=== PATIENT | female | born 1955 | race Caucasian/White ===

== ENCOUNTER → 2016-11-28 17:11 | Outpatient (CLI) | payer BC | END | disposition home or self-care (01) | LOC: D.MAMMO 11:45 | DX: Z12.31 Encounter for screening mammogram for malignant neoplasm of breast (principal) ==

== ENCOUNTER 2017-07-13 09:59 | Day surgery (SDC) | payer BC ==
[2017-07-12 14:49] LABS: BASOPHILS 1.1 % (0-2); EOSINOPHILS 4.7 % (0-7); HEMATOCRIT 37.8 % (36.0-48.0); HEMOGLOBIN 12.6 g/dL (12-16); IMMATURE GRANULOCYTES 0.2 % (0-5); LYMPHOCYTES 25.9 % (15-50); MCH 27.9 pg (26.0-34.0); MCHC 33.3 g/dL (31.0-37.0); MCV 83.6 fL (80.0-100.0); MEAN PLATELET VOLUME 10.8 fL (7.4-10.4); MONOCYTES 10.8 % (2-11); NEUTROPHILS 57.3 % (40-80); PLATELET COUNT 352 10x3/uL (130-400); RBC 4.52 10x6/uL (4.00-5.40); RDW 13.8 % (11.5-14.5); WBC 8.7 10x3/uL (4.8-10.8)
[2017-07-12 15:04] LABS: ANION GAP 13.5 mmol/L (8-16); CALCIUM 8.7 mg/dL (8.5-10.1); CARBON DIOXIDE 27.1 mmol/L (21.0-32.0); CREATININE - SERUM 1.2 mg/dL (0.6-1.3); POTASSIUM - SERUM 3.6 mmol/L (3.5-5.1)
[~2017-07-13] VITALS: Ht 165.1 cm; Wt 93.0 kg
[~2017-07-13 09:59] MED LIST: CELEXA20 MG PO; MOBIC7.5 MG PO; TRIAMTERENE-HCT1 TA1 PO; ZESTRIL10 MG PO
[2017-07-13] MEDS ORDERED: HYDROCODONE-APA1 TAB PO (12:17)
--- NOTE | 2017-07-13 14:09 | OP ---
PATIENT NAME: LALO ESPINO MEDICAL RECORD: [id number] :51 LOCATION:D.OPS ADMISSION DATE: SURGEON: JASVIR GARCIA MD DATE OF OPERATION: 07/13/2017 PREOPERATIVE DIAGNOSES: Rotator cuff tear of the left shoulder with impingement syndrome and acromioclavicular arthritis. POSTOPERATIVE DIAGNOSES: Rotator cuff tear of the left shoulder with impingement syndrome and acromioclavicular arthritis. PROCEDURES: 1. Arthroscopic rotator cuff repair. 2. Arthroscopic distal clavicle excision done through separate incision -- 1 cm. 3. Arthroscopic subacromial decompression with acromioplasty and bursectomy. SURGEON: Jasvir Garcia MD ANESTHESIA: General. INTRAOPERATIVE COMPLICATIONS: None. SUMMARY OF PATHOLOGIC FINDINGS: As seen on the MRI, the patient had a rotator cuff tear with minimal retraction of the supraspinatus tendinous footprint that was very amenable to arthroscopic fixation. Type 3 acromion was also noted as well as acromioclavicular arthritis. OPERATIVE SUMMARY IN DETAIL: After obtaining the appropriate preoperative orthopedic surgery consent as well as anesthetic consultation, evaluation and clearance, the patient was brought to the operating room and placed on the operating table in supine position. After general laryngeal mask airway was administered, the patient was placed in a right lateral decubitus position. All pressure points were well padded to include down leg peroneal pad as well as axillary roll. She was held firmly to the operating table using the vacuum pack suction system. Left upper extremity and shoulder were prepped and draped in routine sterile fashion. The arm was held in the Arthrex arm holding device at 30 degrees of forward flexion, 30 degrees of abduction with 10 pounds of traction laterally. Arthroscopy was established in the glenohumeral joint from a posterior portal. Anterior portal was established in the anterior safe interval. Diagnostic arthroscopy did reveal the above findings. An accessory tertiary portal was established for transrotator cuff debridement of the intra-articular fibers of the rotator cuff that were nonviable as well as decortication of the medial aspect of the supraspinatus tendinous footprint. Attention was then turned to the subacromial space. While in the subacromial space, the undersurface of the acromion was denuded of all soft tissue, using the [place] surface tissue ablation system and the coracoacromial ligament was also released. A 5-0 barrel bur was then used to perform acromioplasty at the level of acromioclavicular joint and then under separate portal, the distal clavicle was excised 1 cm using a 5-0 bur. Having completed this, further decortication was carried out on the nonarticular aspect of the rotator cuff for rotator cuff reapproximation. The rotator cuff was affixed with a #2 FiberTape and this was anchored laterally with a 5.5 SwiveLock from Arthrex. Having completed this, all arthroscopy portals were closed in routine interrupted fashion using 4-0 Prolene. Sterile dressings were applied. The patient was OPERATIVE REPORT [id number] LALO ESPINO, taken to recovery in stable condition. All final needle and sponge counts were correct. TRANSINT:[id number] Voice Confirmation ID: [id number] DOCUMENT ID: [id number] JOSE HINTON, JASVIR MEDRANO at 1409 CC: [id number] DICTATION DATE: 07/13/17 1221 PROJECT MANAGEMENT INTERN: 07/13/17 1254 REG [facility] [address] [place] [address]
--- NOTE | 2017-07-13 16:51 | NUR ---
1330 IV DC WITH CATHER TIP INTACT
== END 2017-07-13 13:45 | disposition home or self-care (01) ==
LOC: D.OPS 09:59 → D.PAN 13:30 → D.OPS 13:30
PROVIDERS: Anesthesiology
DX: M75.122 Complete rotator cuff tear or rupture of left shoulder, not specified as traumatic (principal); M25.512 Pain in left shoulder; I10 Essential (primary) hypertension; G47.30 Sleep apnea, unspecified; Z01.812 Encounter for preprocedural laboratory examination

== ENCOUNTER 2017-12-04 12:53 | Emergency (ER) | payer BC ==
[~2017-12-04 12:53] MED LIST changes: +HYDROCODONE-APA1 TAB PO
== END 2017-12-04 16:51 | disposition home or self-care (01) ==
LOC: D.ER 12:53
DX: M25.511 Pain in right shoulder (principal); V43.52XA Car driver injured in collision with other type car in traffic accident, initial encounter; Y93.89 Activity, other specified; Y92.410 Unspecified street and highway as the place of occurrence of the external cause

== ENCOUNTER 2018-01-29 10:40 | Day surgery (SDC) | payer BC ==
[2018-01-26 09:37] LABS: ANION GAP 10.3 mmol/L (8-16); CALCIUM 9.3 mg/dL (8.5-10.1); CARBON DIOXIDE 29.3 mmol/L (21.0-32.0); POTASSIUM - SERUM 3.6 mmol/L (3.5-5.1)
[2018-01-26 09:46] LABS: HEMATOCRIT 39.3 % (36.0-48.0); HEMOGLOBIN 13.3 g/dL (12-16); MCH 28.4 pg (26.0-34.0); MCHC 33.8 g/dL (31.0-37.0); MEAN PLATELET VOLUME 10.9 fL (7.4-10.4); RBC 4.68 10x6/uL (4.00-5.40); RDW 13.6 % (11.5-14.5); WBC 6.2 10x3/uL (4.8-10.8)
[2018-01-26 09:57] LABS: CREATININE - SERUM 1.1 mg/dL (0.6-1.3)
[~2018-01-29] VITALS: Ht 165.1 cm; Wt 90.7 kg
--- NOTE | ~2018-01-29 | OP ---
PATIENT NAME: LALO ESPINO MEDICAL RECORD: [id number] :51 LOCATION:[facility] ADMISSION DATE: SURGEON: JASVIR GARCIA MD DATE OF OPERATION: 01/29/2018 PREOPERATIVE DIAGNOSIS: Recurrent rotator cuff tear of the right shoulder. POSTOPERATIVE DIAGNOSES: Recurrent rotator cuff tear of the right shoulder plus recurrent impingement. PROCEDURES: 1. Arthroscopic rotator cuff repair of the right shoulder. 2. Arthroscopic subacromial decompression, acromioplasty, and bursectomy. SURGEON: Jasvir Garcia MD ANESTHESIA: General. INTRAOPERATIVE COMPLICATIONS: None. SUMMARY OF PATHOLOGIC FINDINGS: The inner aspect of the rotator cuff on the articular side did not show evidence of full-thickness tearing; however, on the subacromial side, the patient had a large laminar type tear; however, it was very mobile and was mobile enough to return back to the supraspinatus tendon for good fixation. Slight recurrent impingement was noted with some excoriation of the roof of the acromion. The glenohumeral joint was relatively pristine without labral tearing. No biceps tendonitis was noted. OPERATIVE SUMMARY IN DETAIL: After obtaining the appropriate preoperative orthopedic surgery consent as well as anesthetic consultation, evaluation and clearance, the patient was brought to the operating room and placed on the operating table in supine position. After general laryngeal mask airway was administered, the patient was placed in the left lateral decubitus position. All pressure points were padded to include down leg peroneal pad as well as axillary roll. The patient was held firmly to the operating table using vacuum pack suction system. Right upper extremity and shoulder prepped and draped in routine sterile fashion. The arm was held in Arthrex traction at 30 degrees of forward flexion, 30 degrees of abduction with 10 pounds of traction laterally. Arthroscopy was established in the glenohumeral joint from the posterior portal. Anterior portal was established through the anterior safe interval. Diagnostic arthroscopy revealed the above findings without substantial amount of any intraarticular findings. Attention was turned to the rotator cuff, up the subacromial space. After arthroscopy was established in the subacromial space, accessory lateral portal was created. Findings were above as noted. A grasper was utilized to grasp the torn leaflet and it was freely mobile. At this point, decortication was carried out at the supraspinatus tendinous footprint and debridement between the lamina of the rotator cuff was taken out as well. The fibers that were still attached for relatively thin less than 20% of the rotator cuff, these were ultimately debrided and the entire cuff was ultimately brought back as one solid piece. #2 inverted mattress FiberTapes were placed from posterior to the mid substance of OPERATIVE REPORT [id number] LALO ESPINO the tear. These were anchored laterally with a 4.75 SwiveLock from Arthrex and a 5.5 SwiveLock from Arth[employer] respectively. Lastly, the patient had a small portion anteriorly that was still not covering the supraspinatus tendinous footprint. Therefore, a cinch stitch was created out of #2 FiberWire, pulled through with a good grasp and then it was anchored laterally with excellent coverage of the footprint with a 4.75 SwiveLock. Having completed this, the [place] tissue ablation system was utilized to denude the undersurface of the acromion and the acromioplasty was increased substantially in hopes that no further irritation or interference of the subacromial space would inhibit the rotator cuff rotation. The rotator cuff repair was manipulated and viewed under range of motion and seemed to be stable in all planes. Having completed this, arthroscopy portals were closed in routine interrupted fashion with 4-0 Prolene. Sterile dressings were applied. The patient was awakened and taken to the recovery room in stable condition. All final needle and sponge counts were correct. TRANSINT:[id number] Voice Confirmation ID: [id number] DOCUMENT ID: [id number] JOSE HINTON, JASVIR MEDRANO at 1329 CC: [id number] DICTATION DATE: 01/29/18 164 FINANCIAL REPORTING CONSULTANT: 01/29/18 190 [facility] 01/29/18 [facility] [address] [place] [id number]
[2018-01-29 11:23] VITALS: BP 114/45; Ht 165.1 cm; Wt 90.7 kg
[2018-01-29] MEDS ORDERED: HYDROCODONE-APA1 TAB PO (16:43)
== END 2018-01-29 18:35 | disposition home or self-care (01) ==
LOC: D.OPS 10:40 → D.PAN 13:00 → D.OPS 13:00 → D.PAN 14:20 → D.OPS 14:45 → D.PAN 14:45 → D.OPS 18:35
PROVIDERS: Anesthesiology
DX: M75.111 Incomplete rotator cuff tear or rupture of right shoulder, not specified as traumatic (principal); M75.41 Impingement syndrome of right shoulder; Z01.812 Encounter for preprocedural laboratory examination

== ENCOUNTER 2019-04-22 08:18 | Day surgery (SDC) | payer MEDICARE, BC ==
[~2019-04-22] VITALS: Ht 165.1 cm; Wt 81.6 kg
--- NOTE | ~2019-04-22 | OP ---
PATIENT NAME: LALO ESPINO MEDICAL RECORD: [id number] :51 LOCATION:[facility] ADMISSION DATE: SURGEON: DONALD ESPARZA MD DATE OF OPERATION: 04/22/2019 PREOPERATIVE DIAGNOSES: Nasal obstruction, septal deviation, turbinate hypertrophy, tonsillar hypertrophy, uvula edema, and sleep apnea. POSTOPERATIVE DIAGNOSES: Nasal obstruction, septal deviation, turbinate hypertrophy, tonsillar hypertrophy, uvula edema, and sleep apnea. PROCEDURE: Tonsillectomy, uvulectomy, septoplasty, and bilateral inferior turbinate reduction. SURGEON: Donald Esparza MD ANESTHESIA: General orotracheal. BLOOD LOSS: 10 cc. SPECIMENS: Right and left tonsil. NASAL PACKING: Lerma splints bilaterally. COMPLICATIONS: None. DISPOSITION: Recovery stable. DESCRIPTION OF PROCEDURE: She was brought to the operating room and placed in supine position, sedated and intubated by anesthesia. The table was turned 90 degrees. Head drape was applied. Using a headlight and nasal speculum, the nose was examined. Both sides of the septum, floor of the nose and inferior turbinates were injected with a total of less than 2 cc of 1% lidocaine with 1:100,000 epinephrine and 2 Afrin pledgets were placed in each side of the nose. Then, Tracy-Aftab mouth gag was carefully inserted and elevated on a towel on her chest. The palate was examined and palpated. It was normal. A red rubber catheter was placed to the right side of the nose and pharynx was grasped with tonsil clamp to retract the soft palate. Using a mirror, the nasopharynx was examined. The posterior aspect of the inferior turbinates were cauterized with suction cautery, but the nasopharynx was normal. There was no adenoid tissue. The red rubber catheter was let down and removed. The right tonsil was grasped at the superior pole with a straight Allis clamp. Spatula tip cautery on a setting of 10 was used to dissect out the tonsil along its capsule, preserving the anterior and posterior tonsillar pillar. The left tonsil was removed in the same fashion. Then, the uvula was grasped at its tip and most of the uvula was divided, preserving some of the base of the mucosa and all the mucosa of the nasopharynx. This was removed, taking about 4 sets of the uvula. Then, the pharynx was irrigated, agitated. Suction cautery on a setting of 18 was used to control minimal oozing. With the field completely clean and dry, the superior portions of the tonsil fossae and the uvula defect were closed with a combination of interrupted simple and horizontal mattress sutures with 3-0 Vicryl. With that field clean and dry, the Tracy-Aftab mouth gag was let down and removed and the nose was examined. The table was turned back 90 degrees. A left-sided [place] incision was made and ipsilateral mucoperichondrial flap was elevated over a large septal spur. The cartilaginous portion was dissected out OPERATIVE REPORT [id number] LALO ESPINO with a caudal and then the bony cartilaginous junction was disarticulated and a contralateral posterior mucoperichondrial flap was elevated. Scissors were used to make a cut above and below a large bony spur, which was removed and some relaxing incisions were made in the cartilage. This allowed the septum to be in the midline. Then, both inferior turbinates were infractured with a freer. A [place] was used to take down the inferior redundant portion of the turbinate. Suction cautery on a setting of 25 was used to control any bleeding from the turbinates and then both outfractured with a [place] elevator. The [place] incision was closed with interrupted 4-0 chromic. The nose was examined and suctioned, good airway on both sides. With the turbinates outfractured, then the Lerma splints were placed bilaterally with some mupirocin ointment and sutured to the anterior membranous septum with a 2-0 Prolene on a [place] needle. She was awakened, extubated, and transported to recovery in good condition. No complications. TRANSINT:[id number] Voice Confirmation ID: [id number] DOCUMENT ID: [id number] DONALD ESPARZA MD CC: [id number] DICTATION DATE: 04/22/19 1316 METROLOGY TECHNICIAN: 04/22/19 1328 [facility] [address] [place] [id number]
[~2019-04-22 08:18] MED LIST changes: +LIPITOR20 MG PO; +TRAZODONE HCL150 MG PO
[2019-04-22 08:59] LABS: HEMATOCRIT 36.8 % (36.0-48.0); HEMOGLOBIN 12.7 g/dL (12-16); MCH 28.2 pg (26.0-34.0); MCHC 34.5 g/dL (31.0-37.0); MCV 81.8 fL (80.0-100.0); MEAN PLATELET VOLUME 10.1 fL (7.4-10.4); RBC 4.5 10x6/uL (4.00-5.40); RDW 13.5 % (11.5-14.5); WBC 6.6 10x3/uL (4.8-10.8)
[2019-04-22 09:06] LABS: ANION GAP 11.1 mmol/L (8-16); CARBON DIOXIDE 30.1 mmol/L (21.0-32.0); CREATININE - SERUM 1.3 mg/dL (0.6-1.3); POTASSIUM - SERUM 4.2 mmol/L (3.5-5.1)
[2019-04-22 10:11] VITALS: BP 112/57; Ht 165.1 cm; Wt 81.6 kg
--- NOTE | 2019-04-22 11:31 | HP ---
PATIENT: LALO ESPINO MEDICAL RECORD: [id number] ACCOUNT: [id number] LOCATION:[facility] : 51 ADMISSION DATE: 04/22/19 PCP: SHREYAS SANTACRUZ HISTORY AND PHYSICAL EXAMINATION HISTORY OF PRESENT ILLNESS: Ms. Espino is 64. She has been on CPAP, but is having difficult issues because of nasal obstruction. She is having problems with the uvula edema and snoring in addition to not being able to use the CPAP well because of her nasal obstruction. She is being admitted for septoplasty, turbinate reduction, tonsillectomy, uvulectomy. PAST MEDICAL HISTORY: Includes hypertension and sleep apnea. PAST SURGICAL HISTORY: Includes shoulder surgery times 3. SOCIAL HISTORY: She is a nonsmoker. CURRENT MEDICATIONS: Lisinopril, meloxicam, cholesterol medication, and anxiety medication. ALLERGIES: PENICILLIN. PHYSICAL EXAMINATION: GENERAL: She is healthy-appearing, normal voice. FACE: Normal, symmetric, no lesions. EYES: Sclerae and conjunctivae are normal. EARS: Canals and TMs are normal. NOSE: She has severe septal deviation, septal spur, and large inferior turbinates. ORAL CAVITY AND OROPHARYNX: Long, thick uvula. NECK: Large tonsils bilaterally. CHEST: Clear. CARDIOVASCULAR: Regular rate and rhythm. No murmur. EXTREMITIES: Normal. IMPRESSION: Sleep apnea, nasal obstruction, recurrent uvula edema, tonsillar hypertrophy. PLAN: Septoplasty, turbinate reduction, tonsillectomy, and uvulectomy. TRANSINT:[id number] Voice Confirmation ID: [id number] DOCUMENT ID: [id number] DONALD BRAND MD at 1131 CC: [id number] DICTATION DATE: 04/18/19 1016 MBA INTERNSHIP: 04/18/19 1104 REG [facility] [address] [place] [address]
--- NOTE | 2019-04-22 16:39 | NUR ---
1445 MEDICATED FOR PAIN. 1600 IV REMOVED. INSTRUCTIONS AND RX GIVEN TO PT
== END 2019-04-22 16:00 | disposition home or self-care (01) ==
LOC: D.OPS 08:18
PROVIDERS: Anesthesiology; ATTEND Otolaryngology
DX: J34.89 Other specified disorders of nose and nasal sinuses (principal); J34.2 Deviated nasal septum; J34.3 Hypertrophy of nasal turbinates; J35.1 Hypertrophy of tonsils; G47.30 Sleep apnea, unspecified

== ENCOUNTER 2019-06-24 09:00 | Outpatient (CLI) | payer MEDICARE, BC | END 2019-06-24 10:00 | disposition home or self-care (01) | LOC: D.MAMMO 09:00 | PROVIDERS: ATTEND Family Medicine | DX: Z12.31 Encounter for screening mammogram for malignant neoplasm of breast (principal) ==